=== PATIENT | female | born 1990 | race Caucasian/White ===

== ENCOUNTER 2016-07-14 23:21 | Emergency (ER) | payer OTHER ==
[~2016-07-14 23:21] MED LIST: NORCO 5-325 TA1 EACH PO
== END 2016-07-15 00:27 | disposition home or self-care (01) ==
LOC: ER1 23:21
DX: K80.50 Calculus of bile duct without cholangitis or cholecystitis without obstruction (principal); Z88.0 Allergy status to penicillin
CPT/HCPCS: 99283

== ENCOUNTER 2020-03-28 11:07 | Outpatient (CLI) | payer OTHER ==
[~2020-03-28 11:07] MED LIST changes: +ERYTHROMYCIN500 MG PO; +TORADOL 10 MG T10 MG PO; +ZITHROMAX250 MG PO
[2020-03-28 12:11] LABS: HEMOGLOBIN 9.7 gm/dl (12.3-15.3); RED BLOOD COUNT 4.14 M/UL (4.00-5.10); WHITE BLOOD COUNT 13.1 K/UL (4.5-11.0)
[2020-03-29] MEDS ORDERED: ONDANSETRON HCL8 MG PO (09:11)
[2020-03-29] MEDS ORDERED: PRENATABS RX T1 EACH PO (09:12)
[2020-03-29] MEDS ORDERED: VENTOLIN HFA 66.7 GM INH (09:12)
[2020-03-29] MEDS ORDERED: LORTAB 5-325 M1 EACH PO (11:46)
[2020-03-29] MEDS ORDERED: DOCUSATE SODIU100 MG PO (11:46)
[2020-03-29] MEDS ORDERED: IBUPROFEN600 MG PO (11:46)
== END 2020-03-28 12:10 | disposition home or self-care (01) ==
LOC: GENOP 11:07
PROVIDERS: Obstetrics & Gynecology
DX: Z53.8 Procedure and treatment not carried out for other reasons (principal)
CPT/HCPCS: 36415; 81001; 85025

== ENCOUNTER 2020-03-29 07:30 | Inpatient (IN) | payer OTHER ==
[~2020-03-29] VITALS: Ht 152.4 cm; Wt 95.7 kg
[2020-03-29] MEDS ORDERED: ONDANSETRON HCL8 MG PO (09:11)
[2020-03-29] MEDS ORDERED: VENTOLIN HFA 66.7 GM INH (09:12)
[2020-03-29] MEDS ORDERED: PRENATABS RX T1 EACH PO (09:12)
[2020-03-29] MEDS ORDERED: DOCUSATE SODIU100 MG PO (11:46)
[2020-03-29] MEDS ORDERED: LORTAB 5-325 M1 EACH PO (11:46)
[2020-03-29] MEDS ORDERED: IBUPROFEN600 MG PO (11:46)
[2020-03-30 04:02] LABS: HEMOGLOBIN 9.7 gm/dl (12.3-15.3)
== END 2020-03-30 14:57 | disposition home or self-care (01) | DRG 788 ==
LOC: OB 08:13
PROVIDERS: ADMIT Obstetrics & Gynecology
PROC: 3E0234Z Introduction of Serum, Toxoid and Vaccine into Muscle, Percutaneous Approach (ICD-10-PCS; 2020-03-29)
PROC: 10D00Z1 Extraction of Products of Conception, Low, Open Approach (ICD-10-PCS; principal; 2020-03-29 10:30)
DX: O34.211 Maternal care for low transverse scar from previous cesarean delivery (principal); Z3A.39 39 weeks gestation of pregnancy; Z37.0 Single live birth; O99.02 Anemia complicating childbirth; D50.9 Iron deficiency anemia, unspecified; Z87.442 Personal history of urinary calculi; O99.52 Diseases of the respiratory system complicating childbirth; J45.909 Unspecified asthma, uncomplicated; Z88.0 Allergy status to penicillin; Z80.9 Family history of malignant neoplasm, unspecified; Z82.5 Family history of asthma and other chronic lower respiratory diseases; Z83.49 Family history of other endocrine, nutritional and metabolic diseases; Z83.3 Family history of diabetes mellitus; Z82.49 Family history of ischemic heart disease and other diseases of the circulatory system; Z82.3 Family history of stroke; Z84.89 Family history of other specified conditions; O40.3XX0 Polyhydramnios, third trimester, not applicable or unspecified; O75.89 Other specified complications of labor and delivery; O99.214 Obesity complicating childbirth; Z23 Encounter for immunization
CPT/HCPCS: 36415; 81001; 82800; 85014; 85018; 85025; 90471; 90715; C9113; J1580; J2210; J2270; J2274; J2370; J2405; J2550; J2590; J3010; J3430; J7120

== ENCOUNTER 2020-04-13 17:19 | Emergency (ER) | payer OTHER ==
[~2020-04-13 17:19] MED LIST changes: +DOCUSATE SODIU100 MG PO; +IBUPROFEN600 MG PO; +LORTAB 5-325 M1 EACH PO; +ONDANSETRON HCL8 MG PO; +PRENATABS RX T1 EACH PO; +VENTOLIN HFA 66.7 GM INH
[2020-04-13 20:18] LABS: BUN/CREATININE RATIO 16 (0-10)
[2020-04-13 20:19] LABS: HEMOGLOBIN 12.4 gm/dl (12.3-15.3); RED BLOOD COUNT 5.13 M/UL (4.00-5.10); WHITE BLOOD COUNT 10.5 K/UL (4.5-11.0)
[2020-04-13] MEDS ORDERED: CLEOCIN HCL300 MG PO (22:28)
[2020-04-13] MEDS ORDERED: OMNICEF 300 MG300 MG PO (22:28)
[2020-04-13] MEDS ORDERED: FLAGYL500 MG PO (22:28)
== END 2020-04-13 23:00 | disposition home or self-care (01) ==
LOC: ER1 17:19
PROVIDERS: Physician Assistant
DX: O72.1 Other immediate postpartum hemorrhage (principal); Z98.890 Other specified postprocedural states
CPT/HCPCS: 80053; 81001; 83605; 83690; 85025; 87040; 87070; 87077; 87205; 96365; 96366; 96368; 96375; 99284; J2270; J2405; J3370; J7070; Q9967

== ENCOUNTER 2020-10-16 18:43 | Observation (INO) | payer OTHER ==
[~2020-10-16] VITALS: Ht 152.4 cm; Wt 81.6 kg
[~2020-10-16 18:43] MED LIST changes: +CLEOCIN HCL300 MG PO; +FLAGYL500 MG PO; +OMNICEF 300 MG300 MG PO
[2020-10-16 20:08] LABS: HEMOGLOBIN 13.2 gm/dl (12.3-15.3); RED BLOOD COUNT 4.94 M/UL (4.00-5.10); WHITE BLOOD COUNT 11.3 K/UL (4.5-11.0)
[2020-10-16 20:36] LABS: BUN/CREATININE RATIO 11 (0-10)
[2020-10-17] MEDS ORDERED: JAIMIESS 0.15-1 EACH PO (02:42)
[2020-10-17] MEDS ORDERED: FIORINAL CAPSULE1 EA PO (15:51)
== END 2020-10-17 16:51 | disposition home or self-care (01) ==
LOC: ER1 18:43 → MED SURG 4 23:39 → CDU 23:39 → MED SURG 4 10-17 00:48
PROVIDERS: Physician Assistant; ADMIT Internal Medicine
DX: G43.109 Migraine with aura, not intractable, without status migrainosus (principal); R29.818 Other symptoms and signs involving the nervous system; J45.20 Mild intermittent asthma, uncomplicated; Z88.0 Allergy status to penicillin; Z88.1 Allergy status to other antibiotic agents; F17.210 Nicotine dependence, cigarettes, uncomplicated; Z20.822 Contact with and (suspected) exposure to COVID-19; Z90.49 Acquired absence of other specified parts of digestive tract
CPT/HCPCS: 70450; 70496; 70498; 70551; 80053; 82550; 82553; 82962; 83874; 84484; 85025; 93005; 99285; G0378; Q9967; U0002

== ENCOUNTER 2021-04-07 20:57 | Emergency (ER) | payer OTHER ==
[~2021-04-07 20:57] MED LIST changes: +FIORINAL CAPSULE1 EA PO; +JAIMIESS 0.15-1 EACH PO
[2021-04-07 22:04] LABS: HEMOGLOBIN 11.3 gm/dl (12.3-15.3); RED BLOOD COUNT 4.24 M/UL (4.00-5.10); WHITE BLOOD COUNT 6.5 K/UL (4.5-11.0)
[2021-04-07 22:29] LABS: BUN/CREATININE RATIO 8 (0-10)
== END 2021-04-08 00:35 | disposition home or self-care (01) ==
LOC: ER1 20:57
PROVIDERS: Physician Assistant
DX: U07.1 COVID-19 (principal); J06.9 Acute upper respiratory infection, unspecified; J45.909 Unspecified asthma, uncomplicated; Z88.0 Allergy status to penicillin
CPT/HCPCS: 0240U; 80053; 81001; 83605; 85025; 87040; 99284

== ENCOUNTER → 2021-04-11 | Outpatient (CLI) | payer OTHER ==
[~2021-04-11] VITALS: Ht 152.4 cm; Wt 81.6 kg
== END ==
LOC: EROP 12:26
DX: U07.1 COVID-19 (principal); Z23 Encounter for immunization; J45.909 Unspecified asthma, uncomplicated
CPT/HCPCS: M0247; Q0247

== ENCOUNTER 2021-08-31 18:35 | Emergency (ER) | payer OTHER ==
[2021-08-31] MEDS ORDERED: PROCTOCREAM-HC30 GM PR (19:56)
== END 2021-08-31 20:05 | disposition home or self-care (01) ==
LOC: ER1 18:35
DX: O22.43 Hemorrhoids in pregnancy, third trimester (principal); Z88.0 Allergy status to penicillin; Z90.49 Acquired absence of other specified parts of digestive tract; Z3A.34 34 weeks gestation of pregnancy
CPT/HCPCS: 99282

== ENCOUNTER → 2021-09-26 | Outpatient (CLI) | payer OTHER ==
[~2021-09-26] VITALS: Ht 152.4 cm; Wt 90.7 kg
[~2021-09-26] MED LIST changes: +PROCTOCREAM-HC30 GM PR
== END ==
LOC: OPSV 09-15 13:00
DX: O99.019 Anemia complicating pregnancy, unspecified trimester (principal); Z3A.00 Weeks of gestation of pregnancy not specified
CPT/HCPCS: 96365; J1756

== ENCOUNTER → 2021-10-05 | Outpatient (CLI) | payer OTHER ==
[~2021-10-05] VITALS: Ht 152.4 cm; Wt 92.5 kg
== END ==
LOC: OPSV 13:00
DX: O99.019 Anemia complicating pregnancy, unspecified trimester (principal); D64.9 Anemia, unspecified
CPT/HCPCS: 96365; J1756

== ENCOUNTER → 2021-10-10 | Outpatient (CLI) | payer OTHER ==
[~2021-10-10] VITALS: Ht 152.4 cm; Wt 92.5 kg
== END ==
LOC: OPSV 15:00
DX: O99.019 Anemia complicating pregnancy, unspecified trimester (principal); Z3A.00 Weeks of gestation of pregnancy not specified
CPT/HCPCS: 96365; J1756

== ENCOUNTER 2021-10-16 06:28 | Inpatient (IN) | payer OTHER ==
[2021-10-16 07:12] LABS: HEMOGLOBIN 10.3 gm/dl (12.3-15.3); RED BLOOD COUNT 4.26 M/UL (4.00-5.10); WHITE BLOOD COUNT 10.9 K/UL (4.5-11.0)
[2021-10-16] MEDS ORDERED: IBUPROFEN800 MG PO (12:28)
[2021-10-16] MEDS ORDERED: HYDROCODON-ACE1 EAC2 PO (12:28)
[2021-10-16] MEDS ORDERED: COLACE 100MG C100 MG PO (12:28)
[2021-10-17 07:22] LABS: HEMOGLOBIN 9.4 gm/dl (12.3-15.3)
== END 2021-10-17 18:23 | disposition home or self-care (01) | DRG 786 ==
LOC: OB 06:28
PROVIDERS: ADMIT Obstetrics & Gynecology
PROC: 10D00Z1 Extraction of Products of Conception, Low, Open Approach (ICD-10-PCS; principal; 2021-10-16 07:30)
DX: O99.214 Obesity complicating childbirth (principal); U07.1 COVID-19; O98.52 Other viral diseases complicating childbirth; D62 Acute posthemorrhagic anemia; O99.02 Anemia complicating childbirth; E66.9 Obesity, unspecified; O99.52 Diseases of the respiratory system complicating childbirth; J45.909 Unspecified asthma, uncomplicated; O34.211 Maternal care for low transverse scar from previous cesarean delivery; Z28.310 Unvaccinated for COVID-19; Z86.73 Personal history of transient ischemic attack (TIA), and cerebral infarction without residual deficits; Z82.3 Family history of stroke; Z83.3 Family history of diabetes mellitus; Z82.49 Family history of ischemic heart disease and other diseases of the circulatory system; Z83.49 Family history of other endocrine, nutritional and metabolic diseases; Z88.0 Allergy status to penicillin; Z37.0 Single live birth; Z3A.39 39 weeks gestation of pregnancy
CPT/HCPCS: 36415; 81001; 82800; 85014; 85018; 85025; C9113; J1580; J2274; J2370; J2405; J2590; J3010